=== PATIENT | male | born 2000 | race Asian ===

== ENCOUNTER 2023-11-29 21:52 | Emergency (ER) | payer OTHER ==
[~2023-11-29] VITALS: Ht 170.2 cm; Wt 93.2 kg
[2023-11-29 22:04] VITALS: TEMP 98.8
[2023-11-29] MEDS ORDERED: Home HYDROcodone/Acetaminophen 5/325 MG #4 TABS/PACK PO ONE (23:00)
[2023-11-29 23:22] VITALS: BP 146/101; PULSE 68
== END 2023-11-29 23:22 | disposition home or self-care (01) ==
LOC: COL.ER 21:52
DX: S43.401A Unspecified sprain of right shoulder joint, initial encounter (principal); F17.290 Nicotine dependence, other tobacco product, uncomplicated; X50.1XXA Overexertion from prolonged static or awkward postures, initial encounter; Y93.89 Activity, other specified